=== PATIENT | female | born 1955 | race Caucasian/White ===

== ENCOUNTER 2021-10-10 11:21 | Emergency (ER) | payer MEDICARE, MEDICAID ==
[~2021-10-10] VITALS: Ht 165.1 cm; Wt 78.0 kg
[2021-10-10 13:00] LABS: BASOPHILS % 0.7 % (0.0-2.0); EOSINOPHILS % 1.7 % (0.0-5.0); HEMATOCRIT. 42.7 % (36.0-48.0); LYMPHOCYTES % 25.6 % (20.0-50.0); MEAN CORPUSCULAR HEMOGLOBIN 28.5 pg (28.0-32.0); MEAN CORPUSCULAR VOLUME 86.9 fL (81.0-99.0); MEAN PLATELET VOLUME 8.3 fl (7.4-10.4); MONOCYTES % 10.2 % (2.0-8.0); NEUTROPHILS % 61.8 % (40.0-76.0); PLATELET 261 x1000/uL (130-400); RED BLOOD CELL COUNT 4.92 mill/uL (4.2-5.4); RED CELL DISTRIBUTION WIDTH 14.3 % (11.6-14.6)
[2021-10-10 13:12] LABS: CHLORIDE 103 mEq/L (98-107)
[2021-10-10] MEDS ORDERED: PROM5SYR MT (15:10)
[2021-10-10 15:30] VITALS: BP 154/77
[2021-10-10] MEDS ORDERED: NIRM1TAB4 PO (15:52)
== END 2021-10-10 15:53 | disposition home or self-care (01) ==
LOC: ER 11:21
DX: U07.1 COVID-19 (principal); R55 Syncope and collapse; J45.909 Unspecified asthma, uncomplicated; Z88.0 Allergy status to penicillin
CPT/HCPCS: 36415; 71045; 80053; 85025; 87426; 87804; 93005; 99285; C9803

== ENCOUNTER 2022-09-29 11:47 | Emergency (ER) | payer MEDICARE, MEDICAID ==
[~2022-09-29] VITALS: Ht 160 cm; Wt 79.0 kg
[~2022-09-29 11:47] MED LIST: NIRM1TAB4 PO; PROM5SYR MT
[2022-09-29 11:59] VITALS: BP 148/86
[2022-09-29] MEDS ORDERED: LORA10TA64 MT (16:23)
[2022-09-29] MEDS ORDERED: TOPUD MT (16:23)
[2022-09-29] MEDS ORDERED: FLUT9.9S BOTHNSTRLS (16:23)
== END 2022-09-29 16:44 | disposition home or self-care (01) ==
LOC: ER 11:47
DX: H92.01 Otalgia, right ear (principal); J45.909 Unspecified asthma, uncomplicated; Z87.19 Personal history of other diseases of the digestive system; Z88.0 Allergy status to penicillin
CPT/HCPCS: 99281

== ENCOUNTER 2024-04-05 10:58 | Emergency (ER) | payer MEDICARE, MEDICAID ==
[~2024-04-05] VITALS: Ht 152.4 cm; Wt 77.1 kg
[~2024-04-05 10:58] MED LIST changes: +FLUT9.9S BOTHNSTRLS; +LORA10TA64 MT; +TOPUD MT
[2024-04-05 11:01] VITALS: O2SAT 100
[2024-04-05 11:07] VITALS: BP 168/80; TEMP 98.3
[2024-04-05 12:04] LABS: BASOPHILS % 0.7 % (0.0-2.0); EOSINOPHILS % 3.5 % (0.0-5.0); HEMATOCRIT. 44.1 % (36.0-48.0); HEMOGLOBIN. 14.3 g/dL (12.0-16.0); LYMPHOCYTES % 27.8 % (20.0-50.0); MEAN CORPUSCULAR HEMOGLOBIN 28.8 pg (28.0-32.0); MEAN CORPUSCULAR HGB CONC 32.4 g/dL (31.0-37.0); MEAN PLATELET VOLUME 8.2 fl (7.4-10.4); MONOCYTES % 9.1 % (2.0-8.0); NEUTROPHILS % 58.9 % (40.0-76.0); PLATELET 358 x1000/uL (130-400); RED BLOOD CELL COUNT 4.95 mill/uL (4.2-5.4); RED CELL DISTRIBUTION WIDTH 14.8 % (11.6-14.6); WHITE BLOOD COUNT 10.1 x1000/uL (4.5-11.0)
[2024-04-05 12:14] LABS: CHLORIDE 103 mEq/L (98-107); POTASSIUM 4.7 mEq/L (3.5-5.1); SODIUM 140 mEq/L (136-145)
[2024-04-05 12:15] LABS: CARBON DIOXIDE 32 mEq/L (21-32)
[2024-04-05 12:20] LABS: CREATININE 0.6 mg/dL (0.6-1.0)
[2024-04-05 12:21] LABS: GLUCOSE 97 mg/dL (70-105); UREA NITROGEN BLOOD 8 mg/dL (9-23)
[2024-04-05 12:22] LABS: ALANINE AMINOTRANSFERASE 14 IU/L (10-49); ALBUMIN 4.6 g/dL (3.2-4.8); ASPARTATE AMINOTRANSFERASE 18 IU/L (<34); TROPONIN I HIGH SENSITIVITY 6 ng/L (3.0-34)
[2024-04-05 12:23] LABS: BILIRUBIN DIRECT 0.2 mg/dL (<=3.0); BILIRUBIN TOTAL 0.6 mg/dL (0.1-1.0); PROTEIN TOTAL 6.9 g/dL (6.0-8.3)
[2024-04-05 13:51] LABS: CLARITY URINE CLEAR (CLEAR); COLOR URINE YELLOW (YELLOW); GLUCOSE URINE NEGATIVE (NEGATIVE); KETONES URINE NEGATIVE (NEGATIVE); LEUKOCYTE ESTERASE URINE TRACE (NEGATIVE); NITRITE URINE NEGATIVE (NEGATIVE); OCCULT BLOOD URINE NEGATIVE (NEGATIVE); PH URINE 7.5 (4.5-8.0); PROTEIN URINE NEGATIVE (NEGATIVE); SPECIFIC GRAVITY URINE 1.013 (1.005-1.030)
[2024-04-05 14:28] LABS: SQUAMOUS EPITHELIAL CELL URINE 2+ /lpf (RARE/1+)
[2024-04-05 14:29] LABS: BACTERIA URINE TRACE; RBC URINE NONE SEEN /hpf (0-2); WBC URINE 0-2 /hpf (0-2)
[2024-04-05] MEDS: PREDNISONE 20MG TABLET PO ONE (14:31)
[2024-04-05 15:16] VITALS: PULSE 72; RESP 16; O2SAT 96
[2024-04-05] MEDS ORDERED: POLY17PO3 MT (15:16)
[2024-04-05] MEDS ORDERED: P50 MT (15:16)
[2024-04-05] MEDS ORDERED: ALBU18HF2 IH (15:16)
[2024-04-05] MEDS: IPRATROPIUM/ALBUTEROL 0.5-3(2.5)MG/3ML NEB HHN ONE (15:16)
== END 2024-04-05 16:00 | disposition home or self-care (01) ==
LOC: ER 10:58
DX: J45.901 Unspecified asthma with (acute) exacerbation (principal); K59.00 Constipation, unspecified; Z88.0 Allergy status to penicillin; Z98.890 Other specified postprocedural states
CPT/HCPCS: 99285; 94070; 71045; 80076; 80048; 81003; 83690; 85025; 84484; 36415; 93005; 98960; 94664; 94640; J7512